=== PATIENT | female | born 1975 | race Caucasian/White ===

== ENCOUNTER 2024-07-10 13:36 | Outpatient (CLI) | payer OTHER, SELFPAY | END 2024-07-10 13:37 | disposition home or self-care (01) | PROVIDERS: PCP Family Medicine; Visit Provider Obstetrics & Gynecology | DX: R63.5 Abnormal weight gain (principal); Z13.220 Encounter for screening for lipoid disorders; Z13.29 Encounter for screening for other suspected endocrine disorder | CPT/HCPCS: 80061; 84443 ==

== ENCOUNTER 2024-08-25 07:23 | Outpatient (CLI) | payer OTHER, SELFPAY ==
--- NOTE | 2024-08-25 08:30 | W.ANESCHARGE ---
Anesthesia Charges Start Date/Time Anesthesia Start Date: 08/25/24 Anesthesia Start Time: 07:54 Stop Date/Time Anesthesia Stop Date: 08/25/24 Anesthesia Stop Time: 08:26
--- NOTE | 2024-08-25 08:47 | W.ANESCHARGE ---
Anesthesia Charges Start Date/Time Anesthesia Start Date: 08/25/24 Anesthesia Start Time: 07:54 Stop Date/Time Anesthesia Stop Date: 08/25/24 Anesthesia Stop Time: 08:26
== END 2024-08-25 07:24 | disposition home or self-care (01) ==
LOC: OP CLINIC 07:24
PROVIDERS: PCP Family Medicine; Visit Provider Surgery
DX: Z12.11 Encounter for screening for malignant neoplasm of colon (principal); K57.30 Diverticulosis of large intestine without perforation or abscess without bleeding; K64.4 Residual hemorrhoidal skin tags; Z83.719 Family history of colon polyps, unspecified
CPT/HCPCS: 00811; 00812; 45378; J2405; J2704

== ENCOUNTER 2024-09-16 13:08 | Outpatient (CLI) | payer OTHER, SELFPAY ==
--- NOTE | 2024-09-16 13:20 | CRLHL7_ITS ---
For Patients: As a result of the Century Cures Act, medical imaging exams and procedure reports are released immediately into your electronic medical record. You may view this report before your referring provider. If you have questions, please contact your health care provider. BILATERAL SCREENING MAMMOGRAM WITH COMPUTER-AIDED DETECTION AND TOMOSYNTHESIS TECHNIQUE: CC and MLO views were obtained. These mammographic images have been obtained using full-field digital technique. These mammographic images were interpreted with the benefit of computer-aided detection. Breast Tomosynthesis was used in this interpretation. COMPARISON FILM: 10/02/21, 12/29/19. FINDINGS: The breasts are heterogeneously dense, which may obscure small masses IMPRESSION: There is no radiographic evidence for malignancy. ASSESSMENT: BI-RADS Category 1: Negative RECOMMENDATION: Routine screening mammogram in 1 year. A lay language report of this examination will be provided to the patient. Nimesh Cruz M.D. Diagnostic Radiologist [email or web address] TRI/Dictated by: Nimesh Cruz MD @ 09/18/2024 9:38:00 AM (Electronically Signed)
== END 2024-09-16 13:09 | disposition home or self-care (01) ==
LOC: MAMMO 13:08
PROVIDERS: PCP Family Medicine; Visit Provider Obstetrics & Gynecology
DX: Z12.31 Encounter for screening mammogram for malignant neoplasm of breast (principal); R92.333 Mammographic heterogeneous density, bilateral breasts
CPT/HCPCS: 77063; 77067